=== PATIENT | male | born 1985 | race Caucasian/White ===

== ENCOUNTER 2016-06-17 14:23 | Emergency (ER) | payer BC, OTHER ==
[~2016-06-17] VITALS: Ht 182.9 cm; Wt 127.0 kg
[2016-06-17 14:58] VITALS: BP 147/99
[2016-06-17] MEDS ORDERED: ONDANSETRON ODT 4 MG TAB PO ONE (16:00)
[2016-06-17] MEDS ORDERED: HYDROmorphone HCL 2 MG/ML VL IM ONE (16:00)
== END 2016-06-17 16:23 | disposition home or self-care (01) ==
LOC: ER 14:23
DX: G43.909 Migraine, unspecified, not intractable, without status migrainosus (principal); F11.20 Opioid dependence, uncomplicated; G89.29 Other chronic pain; M54.5 Low back pain
CPT/HCPCS: 71010; 96372; 99284; J1170; Q0162

== ENCOUNTER 2017-06-21 21:32 | Emergency (ER) | payer BC ==
[~2017-06-21] VITALS: Ht 182.9 cm; Wt 122.0 kg
[2017-06-22 00:55] VITALS: BP 148/98
[2017-06-22] MEDS ORDERED: PROPOFOL 10 MG/ML 20 ML IV ONE (03:30)
[2017-06-22] MEDS ORDERED: PROPOFOL 100 ML IV ONE (04:02)
[2017-06-22] MEDS ORDERED: HYDROcodone-ACET 10/325MG TAB PO ONE (05:15)
== END 2017-06-22 05:55 | disposition home or self-care (01) ==
LOC: ER 21:32
DX: S62.306A Unspecified fracture of fifth metacarpal bone, right hand, initial encounter for closed fracture (principal); W19.XXXA Unspecified fall, initial encounter; Y93.89 Activity, other specified; Y92.89 Other specified places as the place of occurrence of the external cause; Y99.8 Other external cause status
CPT/HCPCS: 26605; 73110; 73120; 73130; 99152; 99153; 99291; J2704

== ENCOUNTER 2017-12-24 04:56 | Emergency (ER) | payer BC ==
[~2017-12-24] VITALS: Ht 182.9 cm; Wt 122.5 kg
[2017-12-24 05:04] VITALS: BP 146/69
[2017-12-24] MEDS ORDERED: diphenhdrAMINE HCL 25 MG CAP PO ONE (06:30)
[2017-12-24] MEDS ORDERED: PROMETHAZINE HCL 25 MG/ML 1ML IM ONE (06:30)
[2017-12-24] MEDS ORDERED: KETOROLAC TROMETH 60MG/2ML VIAL IM ONE (06:30)
[2017-12-24] MEDS ORDERED: SODIUM CHLORIDE 0.9% 2,000 ML IV ONE (07:37)
== END 2017-12-24 07:52 | disposition home or self-care (01) ==
LOC: ER 04:56
DX: G43.909 Migraine, unspecified, not intractable, without status migrainosus (principal); R11.2 Nausea with vomiting, unspecified
CPT/HCPCS: 96372; 99284; J1885; J2550

== ENCOUNTER 2018-01-28 07:12 | Emergency (ER) | payer BC, MEDICAID ==
[~2018-01-28] VITALS: Ht 195.6 cm; Wt 124.7 kg
[2018-01-28] MEDS ORDERED: SODIUM CHLORIDE 0.9% 1,000 ML IV ONE (07:39)
[2018-01-28] MEDS ORDERED: ONDANSETRON HCL 4 MG/2 ML VIAL ONE (07:44)
[2018-01-28] MEDS ORDERED: ONDANSETRON HCL 4 MG/2 ML VIAL IV ONE ×2 (07:45→09:00)
[2018-01-28 07:58] LABS: Basophils # (auto) 0 uL; Basophils % (auto) 0.5 % (0.0-2.0); Eosinophils # (auto) 0.1 uL; Eosinophils % (auto) 0.5 % (0.0-7.0); Hemoglobin 16.5 g/dL (13.5-17.5); Lymphocytes # (auto) 1.8 uL; Mean Corpuscular Hemoglobin 30.3 pg (28.0-32.0); Mean Corpuscular Hgb Conc. 34.4 g/dL (32.0-36.0); Mean Corpuscular Volume 88.1 fL (80.0-100.0); Monocytes # (auto) 0.7 uL; Monocytes % (auto) 6.3 % (0.0-12.0); Neutrophils # (auto) 7.8 uL; Neutrophils % (auto) 75.7 % (37.0-80.0); Platelet Count (auto) 349 10^3/uL (140-450); Red Blood Cells 5.45 10^6/uL (4.5-5.90); Red Cell Distribution Width 13.5 % (11.8-14.3); White Blood Cell 10.3 10^3/uL (4.4-10.8)
[2018-01-28] MEDS ORDERED: MORPHINE SULFATE 4 MG/ML SYR/VIAL IV ONE (08:00)
[2018-01-28 08:05] LABS: INR 1.06 (0.9-1.15); Prothrombin Time 11.3 sec (9.27-12.13)
[2018-01-28 08:06] LABS: Albumin 4.9 g/dL (3.4-5.0); BUN/Creatinine Ratio 15.2; Calcium 9.3 mg/dL (8.5-10.1)
[2018-01-28 08:09] LABS: Bilirubin, Total 0.6 mg/dL (0.2-1.0); Total Protein 8.9 g/dL (6.4-8.2)
[2018-01-28] MEDS ORDERED: MORPHINE SULFATE INJECTION 1 ML ONE (08:14)
[2018-01-28] MEDS ORDERED: POTASSIUM EFFERVESENT TAB 25 MEQ PO ONE (09:00)
[2018-01-28] MEDS ORDERED: PROMETHAZINE HCL 25 MG/ML 1ML IV ONE (10:15)
[2018-01-28 10:43] VITALS: BP 124/90
== END 2018-01-28 10:48 | disposition home or self-care (01) ==
LOC: ER 07:12
DX: G43.909 Migraine, unspecified, not intractable, without status migrainosus (principal)
CPT/HCPCS: 36415; 80053; 85025; 85610; 85730; 96361; 96374; 96375; 96376; 99283; J2270; J2405; J2550; J7030

== ENCOUNTER 2018-01-28 18:11 | Emergency (ER) | payer BC, MEDICAID ==
[~2018-01-28] VITALS: Ht 182.9 cm; Wt 124.7 kg
[2018-01-28] MEDS ORDERED: HYDROcodone-ACET 10/325MG TAB PO ONE (22:45)
[2018-01-28] MEDS ORDERED: ONDANSETRON ODT 4 MG TAB PO ONE (22:45)
[2018-01-28] MEDS ORDERED: KETOROLAC TROMETH 60MG/2ML VIAL IM ONE (22:45)
[2018-01-28 23:44] VITALS: BP 125/83
== END 2018-01-29 00:41 | disposition home or self-care (01) ==
LOC: ER 18:11
DX: G43.909 Migraine, unspecified, not intractable, without status migrainosus (principal); Z88.1 Allergy status to other antibiotic agents; Z88.8 Allergy status to other drugs, medicaments and biological substances
CPT/HCPCS: 70450; 96372; 99284; J1885; Q0162